=== PATIENT | female | born 1985 | race Caucasian/White ===

== ENCOUNTER 2022-02-27 17:36 | Emergency (ER) | payer SELFPAY ==
[2022-02-27] MEDS ORDERED: Lactated Ringers 1,000 ML IV ONE (18:08)
[2022-02-27] MEDS ORDERED: Ondansetron 4 MG/2 ML SDV IVPUSH ONE (18:08)
[2022-02-27 19:13] LABS: CARBON DIOXIDE,CO2 24.5 mmol/L (21.0-32.0); POTASSIUM,K 3.7 mmol/L (3.5-5.1)
[2022-02-27 20:08] LABS: CORONAVIRUS COVID-19 NAA NEGATIVE (NEGATIVE); INFLUENZA A NAA NEGATIVE (NEGATIVE); INFLUENZA B NAA NEGATIVE (NEGATIVE); RESPIRATORY SYNCYTIAL VIR NAA NEGATIVE (NEGATIVE)
== END 2022-02-27 21:43 | disposition home or self-care (01) ==
LOC: MW.ED 17:36
DX: O20.0 Threatened abortion (principal); Z72.0 Tobacco use; Z20.822 Contact with and (suspected) exposure to COVID-19
CPT/HCPCS: 0241U; 36415; 76817; 80053; 83690; 84702; 84703; 85025; 85610; 86900; 86901; 96361; 96374; 99284; J2405; J7120

== ENCOUNTER 2022-03-08 06:16 | Day surgery (SDC) | payer SELFPAY ==
[2022-03-08] MEDS ORDERED: Sodium Chloride 0.9% 10 ML Syringe FLUSH PRN (06:23)
[2022-03-08] MEDS ORDERED: Sodium Chloride 0.9% 2.5 ML Syringe FLUSH PRN (06:23)
[2022-03-08] MEDS ORDERED: Ondansetron 4 MG/2 ML SDV IVPUSH ONE (06:29)
[2022-03-08] MEDS ORDERED: Morphine 4 MG/ML Syringe IVPUSH ONE ×2 (06:29→06:53)
[2022-03-08] MEDS ORDERED: HYDROmorphone 1 MG/ML Syringe IVPUSH ONE (06:53)
[2022-03-08 07:18] LABS: CARBON DIOXIDE,CO2 27.1 mmol/L (21.0-32.0); POTASSIUM,K 3.8 mmol/L (3.5-5.1)
[2022-03-08] MEDS ORDERED: Morphine 4 MG/ML Syringe IVPUSH PRN (07:50)
[2022-03-08] MEDS ORDERED: Naloxone 0.4 MG/ML SDV IVPUSH PRN (10:13)
[2022-03-08] MEDS ORDERED: Ondansetron 4 MG/2 ML SDV IVPUSH PRN (10:13)
[2022-03-08] MEDS ORDERED: HYDROmorphone 1 MG/ML Syringe IVPUSH PRN (10:13)
[2022-03-08] MEDS ORDERED: Albuterol 0.083% 2.5 MG/3 ML Neb Soln NEB PRN (10:13)
[2022-03-08] MEDS ORDERED: Metoclopramide 10 MG/2 ML SDV IVPUSH PRN (10:13)
[2022-03-08] MEDS ORDERED: Morphine 2 MG/ML SYRINGE IVPUSH PRN (10:13)
[2022-03-08] MEDS ORDERED: fentaNYL 50 MCG/ML SDV IVPUSH PRN (10:13)
[2022-03-08] MEDS ORDERED: Lactated Ringers 1,000 ML IV ONE (10:28)
[2022-03-08] MEDS ORDERED: Famotidine 20 MG/2 ML SDV IVPUSH ONE (10:29)
[2022-03-08] MEDS ORDERED: propofoL 100 ML ONE (10:41)
[2022-03-08] MEDS ORDERED: fentaNYL 250 MCG/5 ML SDV ONE ×2 (10:46→12:20)
[2022-03-08] MEDS ORDERED: Ropivacaine 0.5% 5 MG/ML 30 ML SDV ONE (10:48)
[2022-03-08] MEDS ORDERED: fentaNYL 100 MCG/2 ML SDV ONE (12:58)
[2022-03-08] MEDS ORDERED: Rocuronium Bromide 50 MG/5 ML Syringe ONE (13:24)
[2022-03-08] MEDS ORDERED: Ondansetron 4 MG/2 ML SDV ONE (13:24)
[2022-03-08] MEDS ORDERED: Sugammadex Sodium 200 MG/2 ML VIAL ONE (13:24)
[2022-03-08] MEDS ORDERED: Succinylcholine/Sod PF 100 MG/5 ML SYRINGE IV ONE (13:24)
[2022-03-08] MEDS ORDERED: Glycopyrrolate 0.2 MG/ML SDV ONE (13:25)
== END 2022-03-08 15:38 | disposition home or self-care (01) ==
LOC: MW.ED 06:16 → MW.SDS 10:28
PROVIDERS: ATTEND Obstetrics & Gynecology
DX: O00.102 Left tubal pregnancy without intrauterine pregnancy (principal); O08.0 Genital tract and pelvic infection following ectopic and molar pregnancy; F17.210 Nicotine dependence, cigarettes, uncomplicated
CPT/HCPCS: 36415; 59151; 76801; 80053; 84702; 85025; 96374; 96375; 96376; 99285; J0330; J2270; J2405; J2704; J2795; J3010; J3490; J7030; J7120; 00840; 64488